=== PATIENT | female | born 1980 | race Caucasian/White ===

== ENCOUNTER → 2017-10-13 14:23 | Outpatient (REF) | payer BC, SELFPAY ==
[2017-10-13 19:16] LABS: TSH 1.85 uIU/mL (0.358-3.74)
== END ==
LOC: NCHCN 14:23
PROVIDERS: PCP Nurse Practitioner Family; Visit Provider Physician Assistant Medical
DX: E03.9 Hypothyroidism, unspecified (principal)
CPT/HCPCS: 84443

== ENCOUNTER 2017-11-10 09:53 | Outpatient (REF) | payer BC, SELFPAY ==
[2017-11-10 18:59] LABS: Cholesterol 156 mg/dL (50-200); Glucose 91 mg/dL (70-100); HDL Cholesterol 44 mg/dL (40-60); LDL CHOLESTEROL 107 mg/dL (<100); Triglyceride 41 mg/dL (30-150)
[2017-11-14 10:45] LABS: HIV-1/2 Ag & Ab Screen Negative (NEGAT)
[2017-11-14 14:57] LABS: Chlamydia Result Negative; GC Result Negative; Specimen Description URINE
== END 2017-11-10 10:13 ==
LOC: NCHCN 09:53
PROVIDERS: PCP Nurse Practitioner Family; Visit Provider Nurse Practitioner Family
DX: Z00.00 Encounter for general adult medical examination without abnormal findings (principal); Z11.3 Encounter for screening for infections with a predominantly sexual mode of transmission; Z11.4 Encounter for screening for human immunodeficiency virus [HIV]; Z13.1 Encounter for screening for diabetes mellitus; Z13.220 Encounter for screening for lipoid disorders
CPT/HCPCS: 80061; 82947; 83721; 87389; 87491; 87591

== ENCOUNTER 2017-12-08 12:26 | Outpatient (REF) | payer BC, SELFPAY ==
--- NOTE | 2017-12-08 09:30 | PAPFT_PTH ---
PATIENT: Marian Bland LOC: [facility] U#:[id number] AGE/SX: 37/F ROOM: RE12/08/[address]: JOHANNA Yang : 1980 BED: DIS: 12/08/2017 SPEC #: [id number] RECD: 12/08/17 12:59 STATUS: JORDI REQ #: [id number] SOREN: 12/08/17 09:[address]: Juana Mcintyre DEPT: [facility] Cytology RECD BY: Alivia Davis ENTERED: 12/08/17 13:00 SP TYPE: PAPFT OTHR DR: Graciela Thomas Tissues: 1 - CX/ENDOCX FOR PAP SMEARS Procedures: PAP THIN PREP/UVM Screening HPV DNA PROBE Comments: [id number]
== END 2017-12-08 12:46 ==
LOC: LBN 12:26
PROVIDERS: PCP Nurse Practitioner Family; Visit Provider Nurse Practitioner Family
DX: Z12.4 Encounter for screening for malignant neoplasm of cervix (principal); Z11.51 Encounter for screening for human papillomavirus (HPV)
CPT/HCPCS: 88142; 87624

== ENCOUNTER 2018-12-11 12:12 | Outpatient (REF) | payer BC, SELFPAY ==
[2018-12-12 12:40] LABS: Chlamydia Result Negative; GC Result Negative; Specimen Description URINE
== END 2018-12-11 12:32 ==
LOC: LBN 12:12
PROVIDERS: PCP Nurse Practitioner Family; Visit Provider Nurse Practitioner Family
DX: Z11.3 Encounter for screening for infections with a predominantly sexual mode of transmission (principal)
CPT/HCPCS: 87491; 87591

== ENCOUNTER 2019-01-19 00:53 | Outpatient (CLI) | payer BC, SELFPAY ==
--- NOTE | 2019-01-19 15:00 | DI.MAMMO_ITS ---
EXAM: MAMMO SCREENING CLINICAL HISTORY: screening TECHNIQUE: Mammograms were interpreted according to the usual protocol including computer analysis w [facility] CAD system, tomosynthesis and C-view imaging. COMPARISON: No exams were available for comparison. This is a baseline examination. FINDINGS: The breasts are composed of scattered areas of fibroglandular density, breast density category B. Th ere are no dominant masses or microcalcifications. There has been no significant interval change when compared with the prior images. IMPRESSION: Category 1, negative mammogram. Yearly screening mammography is recommended. BI-RADS Cat 1 - Negative Breast Density - Category B - Scattered areas of fibroglandular density
== END 2019-01-19 01:13 ==
PROVIDERS: PCP Nurse Practitioner Family; Visit Provider Nurse Practitioner Family
DX: Z12.31 Encounter for screening mammogram for malignant neoplasm of breast (principal)
CPT/HCPCS: 77063; 77067

== ENCOUNTER 2019-02-16 08:55 | Outpatient (REF) | payer BC, SELFPAY ==
[2019-02-16 18:48] LABS: Calculated LDL 97 mg/dL; Cholesterol 150 mg/dL (<200); Glucose 95 mg/dL (74-106); HDL Cholesterol 46 mg/dL (40-60); TSH 0.36 uIU/mL (0.36-3.74); Triglyceride 38 mg/dL (<150)
== END 2019-02-16 09:15 ==
LOC: NCHCN 08:55
PROVIDERS: PCP Nurse Practitioner Family; Visit Provider Nurse Practitioner Family
DX: E03.9 Hypothyroidism, unspecified (principal); Z13.220 Encounter for screening for lipoid disorders
CPT/HCPCS: 80061; 82947; 84443

== ENCOUNTER 2019-03-29 16:25 | Outpatient (REF) | payer BC, SELFPAY ==
[2019-04-02 11:17] LABS: Hepatitis C Ab w Rflx HCV PCR Negative (Negative)
== END 2019-03-29 16:45 ==
LOC: NCHCN 16:25
PROVIDERS: PCP Nurse Practitioner Family; Visit Provider Nurse Practitioner Family
DX: E03.9 Hypothyroidism, unspecified (principal); Z00.00 Encounter for general adult medical examination without abnormal findings; Z11.59 Encounter for screening for other viral diseases
CPT/HCPCS: 86803; 84443

== ENCOUNTER 2019-04-23 19:12 | Outpatient (REF) | payer BC, SELFPAY ==
[2019-04-23 20:37] LABS: TSH 0.39 uIU/mL (0.36-3.74)
== END 2019-04-23 19:32 ==
LOC: NCHCN 19:12
PROVIDERS: PCP Nurse Practitioner Family; Visit Provider Nurse Practitioner Family
DX: E03.9 Hypothyroidism, unspecified (principal)
CPT/HCPCS: 84443

== ENCOUNTER 2020-02-08 03:32 | Outpatient (CLI) | payer OTHER, SELFPAY ==
--- NOTE | 2020-02-08 08:00 | DI.MAMMO_ITS ---
EXAM: MAMMO SCREENING CLINICAL HISTORY: screening TECHNIQUE: Mammograms were interpreted according to the usual protocol including computer analysis w [employer] CAD system, tomosynthesis and C-view imaging. COMPARISON: 2019 FINDINGS: The breasts are composed of scattered fibroglandular densities, Breast Density category B. No suspicious masses or suspicious microcalcifications are seen. No skin thickening or abnormal axillary lymph nodes are seen. There has been no significant change from prior exams. IMPRESSION: BI-RADS Category 1, Negative mammogram Yearly screening mammography is recommended. Breast Density - Category B, scattered fibroglandular densities. A negative radiographic report should not delay biopsy if a dominant or clinically suspicious mass is present. Up to ten percent of cancers are not identified on mammography. A negative report may reinforce clinical impression. Adenosis and dense breasts may obscure an underlying neoplasm. False positive reports average 6 to 10%. Patient will receive a letter notifying them of these results.
== END 2020-02-08 03:52 ==
PROVIDERS: PCP Nurse Practitioner Family; Visit Provider Nurse Practitioner Family
DX: Z12.31 Encounter for screening mammogram for malignant neoplasm of breast (principal)
CPT/HCPCS: 77063; 77067

== ENCOUNTER 2020-04-18 20:27 | Outpatient (REF) | payer OTHER, SELFPAY ==
[2020-04-18 19:43] LABS: Anion Gap 9.8 mmol/L (3-11); BUN 10 mg/dL (7-18); CO2 26.2 mmol/L (21.0-32.0); CREATININE 0.8 mg/dL (0.55-1.02); Calcium 8.8 mg/dL (8.5-10.1); Chloride 105 mmol/L (98-107); Glucose 97 mg/dL (74-106); Potassium 3.7 mmol/L (3.5-5.1); Sodium 141 mmol/L (136-145); TSH (W/Ref FT4) 1.89 uIU/mL (0.36-3.74)
== END 2020-04-18 20:28 | disposition home or self-care (01) ==
LOC: NCHCN 20:27
PROVIDERS: PCP Nurse Practitioner Family; Visit Provider Physician Assistant
DX: E03.9 Hypothyroidism, unspecified (principal); F17.209 Nicotine dependence, unspecified, with unspecified nicotine-induced disorders; Z68.41 Body mass index [BMI] 40.0-44.9, adult
CPT/HCPCS: 80048; 84443

== ENCOUNTER 2020-08-22 16:55 | Outpatient (REF) | payer OTHER, SELFPAY ==
[2020-08-22 18:27] LABS: Iron 109 ug/dL (50-170); Total Iron Binding Capacity 290 ug/dL (250-450); Transferrin Sat 38 % (15-50)
[2020-08-22 18:31] LABS: Abs Immature Grans 0.04 10^3/uL (0.0-0.06); Absolute Basophil Count 0.05 10^3/uL (0.0-0.2); Absolute Eosinophil Count 0.27 10^3/uL (0.0-0.7); Absolute Monocyte Count 0.37 10^3/uL (0.1-0.8); Absolute Neutrophil Count 5.56 10^3/uL (1.2-6.7); Basophils % 0.6; Eosinophils % 3.4; HCT 41.8 % (36.0-46.0); HGB 13.6 g/dL (11.2-15.7); Immature Grans % 0.5; Lymphocytes % 20.3; MCH 29.9 pg (27.0-33.0); MCHC 32.5 % (32.0-36.0); MCV 91.9 fL (80-95); MPV 10.6 fL (8.0-11.0); Monocytes % 4.7; Neutrophils % 70.5; Nucleated RBC 0 %; Platelet Count 323 10^3/uL (130-400); RBC 4.55 10^6/uL (3.93-5.22); RDW 12.9 % (11.7-14.6); RDW-SD 43.7 fL; WBC 7.89 10^3/uL (4.4-10.8)
[2020-08-22 18:57] LABS: Ferritin 237 ng/mL (8-252); TSH 2.26 uIU/mL (0.36-3.74); Vitamin B12 447 pg/mL (193-986)
[2020-08-22 19:40] LABS: FREE T4 1.16 ng/dL (0.76-1.46)
[2020-08-25 02:37] LABS: Vitamin D 25 Total 29.4 ng/mL (30-100)
== END 2020-08-22 16:56 | disposition home or self-care (01) ==
LOC: NCHCN 16:55
PROVIDERS: PCP Nurse Practitioner Family; Visit Provider Physician Assistant
DX: E03.9 Hypothyroidism, unspecified (principal); L65.9 Nonscarring hair loss, unspecified; Z68.41 Body mass index [BMI] 40.0-44.9, adult; Z79.899 Other long term (current) drug therapy
CPT/HCPCS: 82306; 82607; 82728; 83540; 83550; 84439; 84443; 85025

== ENCOUNTER 2021-01-16 10:56 | Outpatient (REF) | payer OTHER, SELFPAY ==
--- NOTE | 2021-01-16 10:30 | PAPFT_PTH ---
PATIENT: Marian Bland LOC: [facility] U#:[id number] AGE/SX: 40/F ROOM: RE01/16/[address]: JOHANNA Yang : 1980 BED: DIS: 01/16/2021 SPEC #: [id number] RECD: 01/16/21 12:54 STATUS: JORDI REQ #: [id number] SOREN: 01/16/21 10:[address]: Juana Mcintyre DEPT: [facility] Cytology RECD BY: Alivia Davis ENTERED: 01/16/21 12:54 SP TYPE: PAPFT OTHR DR: Divya Kee Tissues: 1 - CX/ENDOCX FOR PAP SMEARS Procedures: PAP THIN PREP/UVM Screening HPV DNA PROBE Comments: [id number]
== END 2021-01-16 10:57 | disposition home or self-care (01) ==
LOC: LBN 10:56
PROVIDERS: PCP Nurse Practitioner Family; Visit Provider Nurse Practitioner Family
DX: Z12.4 Encounter for screening for malignant neoplasm of cervix (principal); Z11.51 Encounter for screening for human papillomavirus (HPV)
CPT/HCPCS: 88142; 87624

== ENCOUNTER 2021-02-13 00:30 | Outpatient (CLI) | payer OTHER, SELFPAY ==
--- NOTE | 2021-02-13 07:15 | DI.MAMMO_ITS ---
Exam(s) MAMMO SCREENING EXAM: MAMMO SCREENING CLINICAL HISTORY: screening, z12.39 TECHNIQUE: Bilateral full field digital CC and MLO mammographic images were obtained with 3D tomosyn thesis and utilizing computer aided detection (CAD). COMPARISON: Available for comparison. FINDINGS: Masses/Architectural Distortion: There is a new ovoid density in the upper left breast on the MLO vie w. Microcalcifications: No suspicious pleomorphic-type are seen. Skin Thickening/Nipple Retraction: None. IMPRESSION: 1. New ovoid density in the upper left breast on the MLO view. 2. This area should be further evaluated with spot compression view. Ultrasound may be indicated at that time. BI-RADS Category 0 - Assessment Incomplete: Need additional imaging evaluation Breast Density - Category B - Scattered areas of fibroglandular density Breast density category C or D implies that the patient has dense breast tissue. Dense breast tissue is very common and is not abnormal but dense breast tissue can make it harder to find cancer on a ma mmogram. Also, dense breast tissue may increase their breast cancer risk. This information about the result of the mammogram report was provided to the patient to raise their awareness. Use this report when you speak with the patient about their risks for breast cancer, which includes their family hist ory. At that time, you may recommend for more screening tests (Ultrasound or MRI) as they might be us eful based on their risk. A negative radiographic report should not delay biopsy if a dominant or clinically suspicious mass is present. Up to ten percent of cancers are not identified on mammography. A negative report may reinforce clinical impression. Adenosis and dense breasts may obscure an underlying neoplasm. False positive reports average 6 to 10%. Patient will receive a letter notifying them of these results.
== END 2021-02-13 00:50 ==
PROVIDERS: PCP Nurse Practitioner Family; Visit Provider Nurse Practitioner Family
DX: Z12.31 Encounter for screening mammogram for malignant neoplasm of breast (principal); R92.8 Other abnormal and inconclusive findings on diagnostic imaging of breast
CPT/HCPCS: 77063; 77067

== ENCOUNTER 2021-02-23 00:51 | Outpatient (CLI) | payer OTHER, SELFPAY ==
--- NOTE | 2021-02-23 | DI.US_ITS ---
Exam(s) MG MAMMO SCREEN CALL BACK UNI US BREAST LT LIMITED EXAM: US BREAST LT LIMITED CLINICAL HISTORY: OVOID DENSITY UPPER LEFT BREAST. TECHNIQUE: mediolateral oblique spot compression digital Mammography views of the left breast follow ed by Tomosynthesis andleft breast ultrasound. COMPARISON: 2018 and 2019 FINDINGS: Mammography/Tomosynthesis: Masses/Architectural Distortion: Persistent small circumscribed nodule upper-outer quadrant left everardo st. Microcalcifictions: No suspicious pleomorphic-type are seen. Skin Thickening/Nipple Retraction: None. Left breast US: Echotexture: Normal appearance of the glandular tissue. Shadowing: No suspicious foci. Cyst: 9 x 3 x 8 millimeter clustered microcysts in the 1 o'clock position 7 centimeters from the nipp le , corresponding to the mammographic abnormality. Solid lesions: None seen. Ductal dilation: None. IMPRESSION: 1. No evidence of malignancy is noted. 2. Unless there is more urgent need, follow-up screening mammography is recommended, as per [place] [employer] guidelines. 3. The findings were discussed with the patient on the date of the examination. BI-RADS Category 2 - Benign Findings Breast Density - Category B - Scattered areas of fibroglandular density A negative radiographic report should not delay biopsy if a dominant or clinically suspicious mass is present. Up to ten percent of cancers are not identified on mammography. A negative report may reinforce clinical impression. Adenosis and dense breasts may obscure an underlying neoplasm. False positive reports average 6 to 10%. Patient will receive a letter notifying them of these results.
== END 2021-02-23 01:11 ==
PROVIDERS: PCP Nurse Practitioner Family; Visit Provider Nurse Practitioner Family
DX: R92.8 Other abnormal and inconclusive findings on diagnostic imaging of breast (principal); N60.02 Solitary cyst of left breast
CPT/HCPCS: 76642; 77063; 77067

== ENCOUNTER 2021-06-12 13:31 | Outpatient (REF) | payer OTHER, SELFPAY ==
[2021-06-12 19:32] LABS: Anion Gap 6.7 mmol/L (3-11); BUN 13 mg/dL (7-18); CO2 27.3 mmol/L (21.0-32.0); CREATININE 0.9 mg/dL (0.55-1.02); Calcium 8.7 mg/dL (8.5-10.1); Chloride 105 mmol/L (98-107); Glucose 90 mg/dL (74-106); Potassium 4.3 mmol/L (3.5-5.1); Sodium 139 mmol/L (136-145); TSH (W/Ref FT4) 2.73 uIU/mL (0.36-3.74)
== END 2021-06-12 13:32 | disposition home or self-care (01) ==
LOC: NCHCN 13:31
PROVIDERS: PCP Nurse Practitioner Family; Visit Provider Physician Assistant
DX: E03.9 Hypothyroidism, unspecified (principal)
CPT/HCPCS: 80048; 84443

== ENCOUNTER 2022-04-02 00:14 | Outpatient (CLI) | payer OTHER, SELFPAY ==
--- NOTE | 2022-04-02 15:15 | DI.MAMMO_ITS ---
Exam(s) MAMMO SCREENING EXAM: MAMMO SCREENING CLINICAL HISTORY: screening TECHNIQUE: Bilateral full field digital CC and MLO mammographic images were obtained with 3D tomosyn thesis and utilizing computer aided detection (CAD). COMPARISON: Available for comparison. FINDINGS: Masses/Architectural Distortion: There is a stable nodule in the upper left breast on the MLO view. No suspicious nodules or areas of architectural distortion are seen. Microcalcifications: No suspicious pleomorphic-type are seen. Skin Thickening/Nipple Retraction: None. IMPRESSION: 1. No significant interval change with no specific features of malignancy noted. 2. Unless there is more urgent need, screening mammography is recommended, as per [place] [employer] guidelines. BI-RADS Category 2 - Benign Findings Breast Density - Category B - Scattered areas of fibroglandular density Breast density category C or D implies that the patient has dense breast tissue. Dense breast tissue is very common and is not abnormal but dense breast tissue can make it harder to find cancer on a ma mmogram. Also, dense breast tissue may increase their breast cancer risk. This information about the result of the mammogram report was provided to the patient to raise their awareness. Use this report when you speak with the patient about their risks for breast cancer, which includes their family hist ory. At that time, you may recommend for more screening tests (Ultrasound or MRI) as they might be us eful based on their risk. A negative radiographic report should not delay biopsy if a dominant or clinically suspicious mass is present. Up to ten percent of cancers are not identified on mammography. A negative report may reinforce clinical impression. Adenosis and dense breasts may obscure an underlying neoplasm. False positive reports average 6 to 10%. Patient will receive a letter notifying them of these results.
== END 2022-04-02 00:34 ==
LOC: DI 00:15
PROVIDERS: PCP Physician Assistant; Visit Provider Advanced Practice Midwife
DX: Z12.31 Encounter for screening mammogram for malignant neoplasm of breast (principal)
CPT/HCPCS: 77063; 77067

== ENCOUNTER 2022-06-15 18:16 | Outpatient (REF) | payer OTHER, SELFPAY ==
[2022-06-15 19:02] LABS: Anion Gap 8.6 mmol/L (3-11); BUN 9 mg/dL (7-18); CO2 27.4 mmol/L (21.0-32.0); Calcium 8.7 mg/dL (8.5-10.1); Chloride 104 mmol/L (98-107); Estimated GFR 71.69 (mL/min/1.73m2); Glucose 109 mg/dL (74-106); Potassium 4.1 mmol/L (3.5-5.1); Sodium 140 mmol/L (136-145); TSH 0.89 uIU/mL (0.36-3.74)
== END 2022-06-15 18:17 | disposition home or self-care (01) ==
LOC: NCHCN 18:16
PROVIDERS: PCP Physician Assistant; Visit Provider Physician Assistant
DX: Z00.00 Encounter for general adult medical examination without abnormal findings (principal); E03.9 Hypothyroidism, unspecified
CPT/HCPCS: 80048; 84443

== ENCOUNTER → 2023-04-07 01:54 | Outpatient (CLI) | payer OTHER, SELFPAY | PROVIDERS: PCP Physician Assistant; Visit Provider Advanced Practice Midwife | DX: Z12.31 Encounter for screening mammogram for malignant neoplasm of breast (principal); R92.323 Mammographic fibroglandular density, bilateral breasts | CPT/HCPCS: 77063; 77067 ==

== ENCOUNTER 2024-05-10 01:40 | Outpatient (CLI) | payer OTHER, SELFPAY | END 2024-05-10 02:00 | LOC: DI 01:40 | PROVIDERS: PCP Physician Assistant; Visit Provider Obstetrics & Gynecology | DX: Z12.31 Encounter for screening mammogram for malignant neoplasm of breast (principal); R92.323 Mammographic fibroglandular density, bilateral breasts | CPT/HCPCS: 77063; 77067 ==

== ENCOUNTER 2024-08-03 14:00 | Outpatient (REF) | payer OTHER, SELFPAY ==
[2024-08-03 19:42] LABS: ALT 33 U/L (14-59); AST 23 U/L (15-37); Albumin 3.9 g/dL (3.4-5.0); Alkaline Phosphatase 107 U/L (46-116); BUN 12 mg/dL (7-18); Bilirubin, Total 0.3 mg/dL (0.2-1.0); CREATININE 0.8 mg/dL (0.55-1.02); Calcium 9.2 mg/dL (8.5-10.1); Chloride 105 mmol/L (98-107); Estimated GFR 92.54 (mL/min/1.73m2); Glucose 117 mg/dL (74-106); Potassium 4.3 mmol/L (3.5-5.1); Sodium 140 mmol/L (136-145); Total Protein 7.4 g/dL (6.4-8.2)
== END 2024-08-03 14:01 | disposition home or self-care (01) ==
LOC: NCHCN 14:00
PROVIDERS: PCP Physician Assistant; Visit Provider Physician Assistant
DX: E03.9 Hypothyroidism, unspecified (principal)
CPT/HCPCS: 80053; 84443

== ENCOUNTER 2024-08-13 18:20 | Outpatient (REF) | payer OTHER, SELFPAY ==
[2024-08-13 18:59] LABS: Abs Immature Grans 0.03 10^3/uL (0.0-0.06); Absolute Basophil Count 0.07 10^3/uL (0.0-0.2); Absolute Eosinophil Count 0.56 10^3/uL (0.0-0.7); Absolute Lymphocyte Count 2.85 10^3/uL (1.2-3.4); Absolute Monocyte Count 0.72 10^3/uL (0.1-0.8); Absolute Neutrophil Count 6.69 10^3/uL (1.2-6.7); Basophils % 0.6 %; Eosinophils % 5.1 %; HCT 42.4 % (36.0-46.0); HGB 14.2 g/dL (11.2-15.7); Immature Grans % 0.3 %; Lymphocytes % 26.1 %; MCH 30.1 pg (27.0-33.0); MCHC 33.5 % (32.0-36.0); MCV 90 fL (80-95); MPV 10.3 fL (8.0-11.0); Monocytes % 6.6 %; Neutrophils % 61.3 %; Platelet Count 397 10^3/uL (130-400); RBC 4.72 10^6/uL (3.93-5.22); RDW 12.7 % (11.7-14.6); RDW-SD 42.2 fL; WBC 10.92 10^3/uL (4.4-10.8)
== END 2024-08-13 18:21 | disposition home or self-care (01) ==
LOC: NCHCN 18:20
PROVIDERS: PCP Physician Assistant; Visit Provider Physician Assistant
DX: K76.0 Fatty (change of) liver, not elsewhere classified (principal)
CPT/HCPCS: 85025

== ENCOUNTER 2024-11-06 17:50 | Outpatient (REF) | payer OTHER, SELFPAY ==
[2024-11-06 19:37] LABS: TSH (W/Ref FT4) 0.14 uIU/mL (0.36-3.74)
== END 2024-11-06 17:51 | disposition home or self-care (01) ==
LOC: NCHCN 17:50
PROVIDERS: PCP Physician Assistant; Visit Provider Physician Assistant
DX: E03.9 Hypothyroidism, unspecified (principal)
CPT/HCPCS: 84439; 84443

== ENCOUNTER 2025-01-10 10:12 | Outpatient (REF) | payer OTHER, SELFPAY ==
[2025-01-10 19:58] LABS: TSH (W/Ref FT4) 0.13 uIU/mL (0.36-3.74)
== END 2025-01-10 10:13 | disposition home or self-care (01) ==
LOC: NCHCN 10:12
PROVIDERS: PCP Physician Assistant; Visit Provider Physician Assistant
DX: E03.9 Hypothyroidism, unspecified (principal)
CPT/HCPCS: 84439; 84443

== ENCOUNTER 2025-01-11 09:52 | Day surgery (SDC) | payer OTHER, SELFPAY ==
--- NOTE | 2025-01-10 19:09 | W.PM.DSUDISC ---
Date of service: 01/11/25 Discharge Plan Disposition Patient Disposition: Home Condition: Good Discharge Details Reason For Visit: screening colonoscopy Attending Provider: Bar Ventura Primary Care Provider: Annie Perkins Home Meds and New Rx's Prescriptions: Continued bupropion HCl [Wellbutrin XL] 150 mg tablet extended release 24 hr 150 mg PO QAM Mirena 1 EACH intrauterine device 1 ea Intrauterine ONCE Qty: 1 Allergy Relief (loratadine) 10 mg capsule 10 mg PO DAILY levothyroxine 175 mcg capsule 150 mcg PO DAILY Zepbound 2.5 mg/0.5 mL pen injector 7.5 mg subcut QWEEK Rx Instructions: for 4 weeks Discontinued bisacodyl [Dulcolax (bisacodyl)] 5 mg tablet,delayed release (DR/EC) 5 mg PO ONCE Qty: 4 0RF Rx Instructions: Take per colonoscopy instructions provided by ordering providers office polyethylene glycol 3350 17 gram/dose powder 17 g PO ONCE Qty: 238 0RF Rx Instructions: Take per colonoscopy instructions provided by ordering providers office Discharge Instructions Additional Instructions: Marian, it was a pleasure meeting you today, and I hope you are comfortable through the procedure. Everything went very smoothly. Your prep was excellent, and I could see everything fine. I saw no signs of tumors, polyps, or any other worrisome pathology. With a negative colonoscopy today, recommended 10-year interval for your next screening. 1. If tolerated, consume a soft, low fiber diet for 1-2 days. 2[address] Do not drive, drink alcohol, operate machinery, make critical decisions, or do activities that require coordination or balance for 24 hours. 3. Because air was put into your colon during the procedure, expelling air from your rectum (passing gas or farting) is normal. 4. You may not have a bowel movement for 1-3 days because of the colonoscopy prep. This is normal. 5. Go directly to the emergency room if you notice any of the following: Develop chills (warm to touch), or if you have a thermometer and your temperature is above 101 Difficulty breathing or difficultly swallowing Persistent vomiting Severe abdominal pain, other than gas cramps Severe chest pain Black, tarry stools Any bleeding – exceeding one tablespoon 6. Call your physician if the site where your intravenous was started becomes red, swollen, painful, and warm to touch. 7. Your physician has reviewed your pre-procedure medications. Please continue to take those medications as previously ordered. You will be given specific information/education regarding any changes to your medications before leaving. Stand Alone Forms: Anesthesia Discharge Inst., Bernice Lopez (DSU), Portal Information Activity:: Activity as Tolerated Diet:: As Tolerated Discharge Orders Discharge Orders: Discharge Order (Routine); Ordered 01/10/25 Ordered By: Bar Ventura DS: Diagnosis Discharge Diagnosis (1) Encounter for screening colonoscopy: Status: Acute Asessment and Plan: Negative screening colonoscopy; recommend 10-year follow-up
--- NOTE | 2025-01-10 19:10 | W.COLOREPORT ---
Date of service: 01/11/25 Time of Service: 11:29 Colonoscopy Report Date of procedure: 01/11/25 Pre-op diagnosis general: screening colonoscopy Post-op diagnosis procedure note: other (Negative screening colonoscopy) Procedure: colonoscopy Surgeon: Bar Ventura Anesthesia Type: General:No Airway Estimated blood loss (mL): 0 Pathology: none sent Complications: None Disposition: same day Indications: Marian is a 44 year old woman who needs a screening colonoscopy Prep: Miralax/Dulcolax Procedure Start Time: 11:12 Procedure End Time: 11:24 Retraction Time: 8 Findings: Negative screening colonoscopy Procedure Description: After the induction of anesthesia, and with the patient in left lateral decubitus position, I began by performing an external anorectal exam. Perineum and skin were normal, as was the anal verge. There was no evidence of external hemorrhoids. Next, I performed a digital rectal exam. I did not appreciate any abnormal findings. Next, I advanced a colonoscope into the rectal vault. I performed retroflexion. This appeared normal. Using irrigation, I then advanced the colonoscope beyond the rectal folds and into the sigmoid colon before advancing towards the cecum. The quality of the prep was excellent. The scope was noted to be in the cecum by identification of the ileocecal valve and appendiceal orifice. I then began withdrawing the colonoscope using repeated irrigation as necessary for full evaluation of the colonic mucosa. Once the scope was withdrawn to the level of the rectum, great care was taken to examine portions of the rectal folds. I saw no signs of tumors, polyps, or any other worrisome pathology. Finally, the scope was withdrawn and the patient was brought to the same-day surgery recovery unit as the anesthetic wore off. The findings and instructions were shared with the patient prior to discharge. [place] Bowel Prep [place] Bowel Prep Right Colon: 3 Left Colon: 3 Transverse Colon: 3 Total Score: 9
[2025-01-11 09:55] VITALS: BP 114/84; PULSE 75; RESP 18; TEMP 36.2; O2SAT 99
[2025-01-11] MEDS: Lactated Ringers 1,000 ML 80 ML IV (10:45)
[2025-01-11 11:27] VITALS: BP 104/60; PULSE 62; RESP 16; TEMP 36.4; O2SAT 96
[2025-01-11 11:49] VITALS: BP 119/72; PULSE 63; RESP 14; TEMP 36.3; O2SAT 100
--- NOTE | 2025-01-11 11:57 | W.ANESPOSTOP ---
Postoperative Evaluation Date, Time and Location Date Performed: 01/11/25 Time Performed: 11:57 Patient Location: Day Surgery Unit Vital Signs Most Recent Imported Vital Signs: Most Recent Vital Signs Temp Pulse Resp BP Pulse Ox 36.3 C L 63 14 119/72 100 01/11/25 11:49 01/11/25 11:49 01/11/25 11:49 01/11/25 11:49 01/11/25 11:49 Pain Score Most Recent Pain Score: Most Recent Pain Score Pain Level 0 01/11/25 11:49 Assessment Mental Status: Awake (Alert & Oriented to Patient Baseline) Airway and Respiratory Function: Patent airway with normal (patient baseline) respiratory exam Cardiovascular Function: Hemodynamically Stable Hydration Status: Adequately Hydrated Nausea & Vomiting: No Nausea or Vomiting Pain: Pt. Denies Any Pain Peripheral Nerve Block: Patient did not receive a nerve block
[2025-01-11 13:47] VITALS: BMI 38.5
--- NOTE | 2025-01-11 13:47 | W.ANESPRE ---
General Info Date of Service Date Performed: 01/11/25 Height: 5 ft 5 in Weight: 105 kg Body Mass Index (BMI): 38.5 Surgical Procedure: Operation Date: 01/11/25 11:20 Proposed Procedure Side Surgeon p Colonoscopy Bar Ventura MD Actual Procedure Side Surgeon p Colonoscopy Not Applicable Bar Ventura MD Pre-Op Diagnosis Post-Op Diagnosis screening colonoscopy Normal Meds Allergies and Home Medications Allergies Allergy/AdvReac Type Severity Reaction Status Date / Time No Known Drug Allergies Allergy Other (See Verified 01/11/25 10:32 Comment) Home Medication Medication Instructions Recorded levonorgestrel (Mirena) 1 ea intrauterine ONCE #1 implant 05/22/15 bupropion HCl 150 mg 24 hr tablet, 150 mg PO QAM 12/11/18 extended release (Wellbutrin XL) loratadine 10 mg capsule (Allergy 10 mg PO DAILY 08/14/24 Relief (loratadine)) levothyroxine 175 mcg capsule 150 mcg PO DAILY 12/27/24 tirzepatide (weight loss) 2.5 7.5 mg subcut QWEEK 12/27/24 mg/0.5 mL subcutaneous pen injector (Zepbound) PFS Active Problems Active Problems: Problem Status Onset Code Encounter for screening colonoscopy Acute Z12.11 Encounter for gynecological examination Acute Z01.419 Obesity Chronic 06/07/16 E66.9 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 2016 Tobacco Smoking/Tobacco Use Status: Former Tobacco Use Passive smoking exposure: No Second hand exposure: No Alcohol Alcohol Intake: current Alcohol intake frequency: holidays/special occasions only Substance Use Substance use: Never Substance use type: does not use Prental History History 3 Para Hx # Term Pregnancies 3 Multiple births Hx # Pregnancies Ectopic pregnancies AB induced Hx Number of Living Children 3 AB spontaneous Past Pregnancies Del. Date GA/Weeks # Preg Succ Route Wgt Sex Labor Lgth Anesthesia Location Prov [facility] 05/28/99 40 No Yes vaginal 3912.234 g Female 10 [facility] 08/26/05 39 No Yes vaginal 3968.933 g Female 4 [facility] 04/07/14 38 Yes vaginal 3657.088 g Female 8 [facility] [place] [employer] Delivery Date: 05/28/99 Last Updated by: [place] Don CNM induced for pre-eclampsia Delivery Date: 08/26/05 Last Updated by: India Don CNM induced for pre-eclampsia Delivery Date: 04/07/14 Last Updated by: [place] Don CNM induced for pre-eclampsia Vital Signs and Lab Results Vital Signs Most Recent Vital Signs in EMR: Most Recent Vital Signs Temp Pulse Resp BP Pulse Ox 36.3 C L 63 14 119/72 100 01/11/25 11:49 01/11/25 11:49 01/11/25 11:49 01/11/25 11:49 01/11/25 11:49 Lab Results Thyroid Panel: TSH, (0.36-3.74) 0.13 uIU/mL L 01/10/25, 09:30 Anesthesia Assessment and Plan Anesthesia History Personal History: No History of Anesthesia Complications Family History: No Family History of Anesthesia Complications Exercise Tolerance Exercise Tolerance: Metabolic Equivalents>4 Pertinent Negatives Pertinent Negatives: No Symptoms of GERD Cardiac & Pulmonary Exam Cardiac Exam: Normal S1/S2 Heart Sounds Pulmonary Exam: Clear Bilateral Breath Sounds Implantable Cardiac Device Does patient have a Pacemaker or an ICD?: No Airway Exam Known Difficult Airway: No Mallampati Class: 2 Mouth Opening: Normal (> 3cm) Thyromental Distance: Greater than 3 cm Neck Range of Motion: Full ROM Neck Circumference: Normal Teeth Condition: Normal Dentition ASA Classification ASA Score: ASA 2 Emergency Case?: No NPO Status NPO Status: NPO Clears >2 hours, Solids >8 hours Status Status: Negative HCG Anesthesia Plan Resuscitation Status: Full Code Anesthesia Technique: General Anesthesia Airway Planned: Natural Airway Monitors Used: Standard Monitors
== END 2025-01-11 12:02 | disposition home or self-care (01) ==
LOC: SUR 09:52
PROVIDERS: PCP Physician Assistant; Visit Provider Surgery
PROC: 0DJD8ZZ Inspection of Lower Intestinal Tract, Via Natural or Artificial Opening Endoscopic (ICD-10-PCS; CPT 45378; principal; 2025-01-11 11:15)
DX: Z12.11 Encounter for screening for malignant neoplasm of colon (principal)
CPT/HCPCS: 45378; 81025; J2704

== ENCOUNTER 2025-02-18 18:16 | Outpatient (REF) | payer OTHER, SELFPAY ==
[2025-02-18 20:06] LABS: TSH (W/Ref FT4) 7.10 uIU/mL (0.55-4.78)
== END 2025-02-18 18:17 | disposition home or self-care (01) ==
LOC: NCHCN 18:16
PROVIDERS: PCP Physician Assistant; Visit Provider Physician Assistant
DX: E03.9 Hypothyroidism, unspecified (principal)
CPT/HCPCS: 84439; 84443